=== PATIENT | female | born 1955 | race Caucasian/White ===

== ENCOUNTER 2018-08-14 08:13 | Emergency (ER) | payer MEDICARE, MEDICAID ==
[~2018-08-14] VITALS: Ht 162.6 cm; Wt 103.0 kg
[~2018-08-14 08:13] MED LIST: ALBUTEROL MDI; AMIT25TA PO; ATOR10TA PO; CARB1TAB43 PO; CARV3.122 PO; CITA40TA12 PO; CLON0.1T22 PO; CLOP75TA52 PO; FENO48TA5 PO; GABA600T7 PO; HYDR1TAB13 PO; LEVE500T8 PO; LISI2.5T PO; METF10002 PO; RANI150C PO; ROPI3TAB PO; TOPI200T25 PO; TRIA1CAP3 PO
--- NOTE | 2018-08-14 08:52 | NUR ---
Patient escorted to restroom with one person assist, attempting to provide urine sample.
[2018-08-14] MEDS ORDERED: HYDROcodone/APAP 5/325 TABLET ONE (08:54)
[2018-08-14] MEDS ORDERED: HYDROcodone/APAP 5/325 TABLET PO ONE (09:00)
--- NOTE | 2018-08-14 09:01 | NUR ---
Patient back in [facility] with continuous blood pressure and SPO2 monitoring in place, call plasencia placed within reach. Patient unable to give urine sample, given cup of water and call plasencia and encouraged to call when able to give urine sample. Plan of care discussed, patient verbalizes understanding.
[2018-08-14 09:23] LABS: BASOPHILS # (AUTO) 0.17 x10^3/uL (0-0.1); BASOPHILS % (AUTO) 1 % (0-1); EOSINOPHILS % (AUTO) 2 % (1-7); LYMPHOCYTES # (AUTO) 3.01 x10^3/uL (1-3.4); LYMPHOCYTES % (AUTO) 21 % (22-44); MD NO; MEAN CORPUSCULAR HEMOGLOBIN 28.5 pg (27.0-34.8); MEAN CORPUSCULAR HGB CONC 33.2 g/dL (32.4-35.8); MEAN CORPUSCULAR VOLUME 85.7 fL (80-100); MEAN PLATELET VOLUME 7.3 fL (7.4-10.4); MONOCYTES # (AUTO) 0.82 x10^3/uL (0.2-0.8); MONOCYTES % (AUTO) 6 % (2-9); NEUTROPHILS # (AUTO) 9.93 x10^3/uL (1.8-6.8); NEUTROPHILS % (AUTO) 70 % (42-75); PLATELET COUNT 372 x10^3/uL (130-400); RED BLOOD COUNT 5.68 x10^6/uL (3.82-5.3); RED CELL DISTRIBUTION WIDTH 14.9 % (9.6-15.2)
--- NOTE | 2018-08-14 09:29 | NUR ---
Patient laying in gurney, dozing intermittently, requests more time for urine sample.
[2018-08-14 09:36] LABS: ALBUMIN 3.4 g/dL (3.4-5.0); ANION GAP 8 mmol/L (5-15); CALCIUM 8.7 mg/dL (8.5-10.1); CHLORIDE 106 mmol/L (98-107); CREATININE 0.94 mg/dL (0.55-1.02)
[2018-08-14 10:36] LABS: MICROSCOPIC NOT IND
[2018-08-14 10:37] VITALS: BP 109/40
[2018-08-14 10:39] LABS: CULTURE INDICATED? NO
--- NOTE | 2018-08-14 12:17 | NUR ---
Discharge instructions discussed with patient including when to return to emergency department, patient verbalizes understanding. Prescriptions provided with instruction for use, patient verbalizes understanding. Patient dresses herself independently.
== END 2018-08-14 12:19 | disposition home or self-care (01) ==
LOC: ED 09:23
DX: M48.56XA Collapsed vertebra, not elsewhere classified, lumbar region, initial encounter for fracture (principal); M51.37 Other intervertebral disc degeneration, lumbosacral region; M54.40 Lumbago with sciatica, unspecified side; M54.16 Radiculopathy, lumbar region; D72.829 Elevated white blood cell count, unspecified
CPT/HCPCS: 36415; 80048; 81003; 82040; 85025; 99283

== ENCOUNTER 2018-08-16 21:11 | Emergency (ER) | payer MEDICARE, MEDICAID ==
[~2018-08-16] VITALS: Ht 162.6 cm; Wt 103.0 kg
[2018-08-16 21:22] VITALS: BP 151/75
[2018-08-16] MEDS ORDERED: METHOCARBAMOL 750 MG TABLET ONE (21:40)
[2018-08-16] MEDS ORDERED: KETOROLAC 30 MG/1 ML ONE (21:41)
--- NOTE | 2018-08-16 21:46 | NUR ---
PT REFUSED PAIN MEDICATION AND LEFT PRIOR TO RECIEVING DISCHARGE PAPERS.
[2018-08-16] MEDS ORDERED: KETOROLAC 30 MG/1 ML IM ONE (22:00)
[2018-08-16] MEDS ORDERED: METHOCARBAMOL 750 MG TABLET PO ONE (22:00)
== END 2018-08-16 21:49 | disposition home or self-care (01) ==
LOC: ED 21:47
DX: S32.029A Unspecified fracture of second lumbar vertebra, initial encounter for closed fracture (principal); S39.012A Strain of muscle, fascia and tendon of lower back, initial encounter; I10 Essential (primary) hypertension; Z88.0 Allergy status to penicillin; G89.29 Other chronic pain; X58.XXXA Exposure to other specified factors, initial encounter; Y93.89 Activity, other specified; Y92.89 Other specified places as the place of occurrence of the external cause; Y99.8 Other external cause status
CPT/HCPCS: 99281